=== PATIENT | male | born 1970 | race Caucasian/White ===

== ENCOUNTER 2018-09-08 09:46 | Emergency (ER) | payer OTHER ==
[~2018-09-08] VITALS: Ht 185.4 cm; Wt 113.4 kg
[2018-09-08] MEDS ORDERED: NORCO 10-325 T1 EACH PO (10:12)
[2018-09-08] MEDS ORDERED: [UNRECOGNIZED DRUG - OTHER] PO (10:14)
[2018-09-08] MEDS ORDERED: AVAPRO300 MG PO (10:15)
[2018-09-08 10:41] LABS: ABSOLUTE BASOPHILS 0.1 thou/uL (0.0-0.2); ABSOLUTE EOSINOPHILS 0.2 thou/uL (0.0-0.7); ABSOLUTE LYMPHOCYTES 1.8 thou/uL (0.8-5.3); ABSOLUTE MONOCYTES 0.5 thou/uL (0.0-1.2); ABSOLUTE NEUTROPHILS 3.8 thou/uL (1.6-8.1); EOSINOPHILS 2.9 %; HEMATOCRIT 44.8 % (42.0-52.0); HEMOGLOBIN 15.4 gm/dL (14.0-18.0); LYMPHOCYTES 28.9 %; MCH 33.3 pg (26.0-34.0); MCHC 34.3 g/dL (28.0-37.0); MCV 97.1 fL (80.0-100.0); MONOCYTES 7.2 %; NUCLEATED RBCS 0 /100WBC; PLATELET COUNT* 212 thou/uL (150-400); RBC 4.62 mil/uL (4.50-6.00); RDW-CV 13.2 % (10.5-14.5); WBC 6.4 thou/uL (4.0-11.0)
[2018-09-08 10:47] LABS: PROTIME 9.8 Seconds (9.20-11.50)
[2018-09-08 10:53] LABS: ALBUMIN 3.8 g/dL (3.4-5.0); CALCIUM 8.6 mg/dL (8.5-10.1); POTASSIUM 4.4 mmol/L (3.5-5.1); TOTAL BILIRUBIN 0.5 mg/dL (<0.1-1.0); TOTAL PROTEIN 7.6 g/dL (6.4-8.2)
[2018-09-08 11:24] VITALS: BP 150/87
--- NOTE | 2018-09-08 16:09 | EKG ---
[place] [address] ELECTROCARDIOGRAM REPORT Name: HO HEDRICK [id number] Admission: 09/08/18 Attend Phys: Discharge: 09/08/18 Date of : 66 Report #: [id number] THIS REPORT FOR: //name// [facility] ED Test Date: 2018-09-08 Test Time: 10:42:19 Pat Name: HO HEDRICK Department: Room: Gender: M Reporting Analyst: : 1970 Requested By: Wiley Menendez Order Number: [id number] MD: Sonu Riggs Measurements Intervals Mobile Rate: 72 P: 46 GA: 123 QRS: 62 QRSD: 87 T: 55 QT: 390 QTc: 427 Interpretive Statements Sinus rhythm No previous ECG available for comparison Electronically Signed On 09-08-2018 16:09:10 CDT by Sonu Riggs [email or web address] <ELECTRONICALLY SIGNED> By: Sonu Riggs MD, [facility] 09/08/18 1609 1042 1042 Sonu Riggs MD, FACC /EPI
== END 2018-09-08 11:25 | disposition home or self-care (01) ==
LOC: M.ERS 09:46
PROVIDERS: Family Medicine
DX: H93.13 Tinnitus, bilateral (principal); I10 Essential (primary) hypertension; G89.29 Other chronic pain; M54.2 Cervicalgia; F17.210 Nicotine dependence, cigarettes, uncomplicated